=== PATIENT | male | born 1975 | race Caucasian/White ===

== ENCOUNTER 2017-01-14 10:17 | Emergency (ER) | payer MEDICAID ==
[~2017-01-14] VITALS: Ht 167.6 cm; Wt 75.7 kg
[2017-01-14 10:54] VITALS: BP 190/119; PULSE 93; RESP 16; TEMP 99.1; O2SAT 100
--- NOTE | 2017-01-14 10:58 | NUR ---
Patient to ER bed 4 to gown for evaluation. Side rails up. Report given to Kimani SAENZ.
--- NOTE | 2017-01-14 11:05 | NUR ---
ER at bedside examining patient.
--- NOTE | 2017-01-14 11:06 | NUR ---
Pt bib caregiver for elevated BP.Pt h/o mental reatardation and htn. Pt denies CP or SOB. Caregiver at bedside providing hx.
[2017-01-14] MEDS ORDERED: LABETALOL 100 MG/ 20ML VIAL IVP ONE (11:15)
--- NOTE | 2017-01-14 11:15 | NUR ---
Lab at bedside for blood specimen collection.
[2017-01-14 11:25] LABS: BASOPHILS % (AUTO) 0.6 % (0.0-2.0); EOSINOPHILS # (AUTO) 0.1 K/uL (0.0-0.4); EOSINOPHILS % (AUTO) 0.9 % (0.0-4.0); HEMATOCRIT 44.3 % (36-54); HEMOGLOBIN 14.7 g/dL (14.0-18.0); LYMPHOCYTES % (AUTO) 13.8 % (20.5-51.5); MEAN CORPUSCULAR HEMOGLOBIN 29 pg (27-31); MEAN CORPUSCULAR HGB CONC 33 % (32-36); MEAN CORPUSCULAR VOLUME 88 fL (79.0-98.0); MONOCYTES # (AUTO) 0.5 K/uL (0.0-1.0); MONOCYTES % (AUTO) 7.2 % (1.7-9.3); NEUTROPHILS # (AUTO) 5.7 K/uL (1.8-7.7); NEUTROPHILS % (AUTO) 77.5 % (40.0-70.0); PLATELET COUNT (AUTO) 255 K/uL (130-430); RED BLOOD CELL COUNT(AUTO) 5.04 MIL/uL (4.2-6.2); RED CELL DISTRIBUTION WIDTH 12.4 % (9.0-15.0); WHITE BLOOD COUNT (AUTO) 7.3 K/uL (4.8-10.8)
[2017-01-14 11:32] LABS: CALCIUM 9.9 mg/dL (8.4-11.0); CREATININE 0.99 mg/dL (0.55-1.30); POTASSIUM 3.4 mmol/L (3.5-5.1)
[2017-01-14 11:37] LABS: ALBUMIN 4.7 g/dL (3.4-4.8); TOTAL BILIRUBIN 0.7 mg/dL (0.0-1.0); TOTAL PROTEIN, SERUM 7.6 g/dL (6.4-8.3)
[2017-01-14] MEDS ORDERED: cloNIDine HCL 0.1 MG TABLET PO ONE (12:15)
--- NOTE | 2017-01-14 12:20 | NUR ---
Pt unable to void .
--- NOTE | 2017-01-14 12:30 | NUR ---
Pt tolerated medication well.
--- NOTE | 2017-01-14 12:55 | NUR ---
Urine specimen collected via straight cath.700 cc yellow urine.
[2017-01-14 13:11] LABS: BILIRUBIN,URINE NEGATIVE (NEGATIVE); BLOOD, URINE NEGATIVE (NEGATIVE); CLARITY/URINE CLEAR (CLEAR); COLOR,URINE YELLOW (YELLOW); GLUCOSE,URINE NEGATIVE (NEGATIVE); KETONES,URINE 1+ (NEGATIVE); LEUKOCYTE ESTERASE ,URINE NEGATIVE (NEGATIVE); NITRITE, URINE NEGATIVE (NEGATIVE); PROTEIN URINE NEGATIVE (NEGATIVE); UROBILINOGEN,URINE 0.2 (0.2-1.0)
--- NOTE | 2017-01-14 13:33 | NUR ---
Terrance singh in [facility] - 01/14/17 at 1426 by DARRIAN Patient transported to radiology via [facility], accompanied by RAD STAFF.
[2017-01-14] MEDS ORDERED: NORMAL SALINE 5 ML DISP.SYRIN IVF SCH (14:00)
[2017-01-14 14:15] VITALS: BP 140/90; PULSE 76; RESP 18; TEMP 98; O2SAT 100
--- NOTE | 2017-01-14 14:15 | NUR ---
Patient and caregiver given written and verbal discharge instructions and verbalizes understanding. ER MD discussed with patient the results and treatment provided. Given copies of tests performed in ER. Patient in stable condition. ID arm band removed. Patient educated on pain management and to follow up with PMD. Pain Scale 0 Opportunity for questions provided and answered.
== END 2017-01-14 14:15 | disposition home or self-care (01) ==
LOC: SED 10:17
DX: I10 Essential (primary) hypertension (principal); R33.9 Retention of urine, unspecified; Z81.8 Family history of other mental and behavioral disorders
CPT/HCPCS: 36415; 71010; 80053; 81003; 84484; 85025; 93005; 99285; J3490

== ENCOUNTER 2024-05-10 14:17 | Emergency (ER) | payer MEDICAID ==
[~2024-05-10] VITALS: Ht 165.1 cm; Wt 74.8 kg
[2024-05-10 14:28] VITALS: BP_SYST 119; PULSE 91; RESP 17; TEMP 97.7; O2SAT 99
[2024-05-10] MEDS ORDERED: DICL20GE TP (16:45)
[2024-05-10] MEDS ORDERED: IBUP-1969 PO (16:45)
[2024-05-10] MEDS: IBUPROFEN 600 MG TABLET PO ONE (16:50)
[2024-05-10] MEDS ORDERED: IBUPROFEN 600 MG TABLET ONE (16:51)
[2024-05-10 16:53] VITALS: BP_SYST 119; PULSE 91; RESP 17; TEMP 97.7; O2SAT 99
== END 2024-05-10 16:53 | disposition home or self-care (01) ==
LOC: SED 14:17
DX: S82.65XA Nondisplaced fracture of lateral malleolus of left fibula, initial encounter for closed fracture (principal); I10 Essential (primary) hypertension; X50.1XXA Overexertion from prolonged static or awkward postures, initial encounter; Y93.89 Activity, other specified; Y92.89 Other specified places as the place of occurrence of the external cause; Y99.8 Other external cause status
CPT/HCPCS: 99284